=== PATIENT | female | born 1990 | race Caucasian/White ===

== ENCOUNTER 2018-03-12 18:12 | Emergency (ER) | payer BC, SELFPAY ==
[2018-03-12 18:22] VITALS: BP 121/68; PULSE 79; RESP 16; TEMP 37; O2SAT 100
--- NOTE | 2018-03-12 18:34 | W.ED.GENAD ---
Discharge Plan Disposition Patient Disposition: HOME Condition: Good Discharge Details Chief Complaint: Urinary Clinical Impression: Acute cystitis ED Provider: Lee Braxton Home Meds and New Rx's Prescriptions: New cephalexin 500 mg tablet 500 mg PO TID 7 Days Qty: 21 RF: 0 phenazopyridine [Pyridium] 100 mg tablet 100 mg PO TID PRN (Reason: UTI) 0 Days RF: 0 Discharge Instructions Instructions: Urinary Tract Infection in Women (ED) Additional Instructions: Please take Pyridium and antibiotic as prescribed. The small, frequent sips of fluids to maintain hydration. Return if you develop a fever, back pain, or any other acute concerns. Follow-up with regular doctor if not improved in 1 week's time Medical Decision Making MDM Narrative Medical decision making narrative: This is a pleasant 27-year-old female presents with 1 day of burning and urgency of urination, similar to previous urinary tract infections. She is afebrile with normal vital signs, mildly tender in the suprapubic region. Consistent with acute cystitis. Urinalysis obtained. Patient is not . we will treat with Pyridium and antibiotics. Lab Data Lab results reviewed: Yes I reviewed the patient's lab results. HPI - General Adult General Date/Time Provider Initiated Documentation: 03/12/18 18:29. Limitations to Documentation: no limitations. Information obtained by: patient. History of Present Illness 27 year old F presents to the emergency department with the chief complaint of UTI, described as mild, Quality is described as burning, and is localized to the pelvis. Patient reports no radiation. Patient started experiencing this hour(s) and it has been constant. No relieving factors improve symptom(s), No exacerbating factors reported . Patient notes no other symptoms.. Patient did receive the following treatments prior to arrival, none Related Data Previous Rx's Medication Instructions Recorded cephalexin 500 mg PO TID 7 Days #21 tab 03/12/18 phenazopyridine [Pyridium] 100 mg PO TID PRN 0 Days tab 03/12/18 Allergies Allergy/AdvReac Type Severity Reaction Status Date / Time No Known Allergies Allergy Unverified 03/12/18 18:27 General Stated Complaint: Urinary ELIF: 4 Review of Systems Review of Systems 8 systems reviewed and otherwise neg PFSH Social History Smoking/Tobacco Use Status: Never Exam Const General: cooperative, healthy appearing, comfortable and no acute distress HENMT Head: normal to inspection Eyes Pupils: PERRL EOM: EOM intact bilaterally Resp Effort & Inspection: normal respiratory effort and able to speak in complete sentences Auscultation: clear to auscultation bilaterally Cardio Rate: regular rate Rhythm: regular rhythm GI Inspection: normal to inspection Palpation: soft Other: Tender to palpation suprapubic area without rebound or guarding Extrem General: normal to inspection and full ROM Psych Appearance: grossly normal Mental Status: mental status grossly normal Speech and Movement: speech and movement normal Course Vital Signs Temperature 37.0 C 03/12/18 18:22 Pulse 79 03/12/18 18:22 Respiratory Rate 16 03/12/18 18:22 Blood Pressure 121/68 03/12/18 18:22 Pulse Oximetry 100 03/12/18 18:22 Temperature 37.0 C 03/12/18 18:22 Pulse 79 03/12/18 18:22 Respiratory Rate 16 03/12/18 18:22 Blood Pressure 121/68 03/12/18 18:22 Pulse Oximetry 100 03/12/18 18:22
--- NOTE | 2018-03-12 18:37 | ED.GENADUL_ITS ---
Discharge Plan Disposition Patient Disposition: HOME Condition: Good Discharge Details Chief Complaint: Urinary Clinical Impression: Acute cystitis ED Provider: Lee Braxton Home Meds and New Rx's Prescriptions: New cephalexin 500 mg tablet 500 mg PO TID 7 Days Qty: 21 RF: 0 phenazopyridine [Pyridium] 100 mg tablet 100 mg PO TID PRN (Reason: UTI) 0 Days RF: 0 Discharge Instructions Instructions: Urinary Tract Infection in Women (ED) Additional Instructions: Please take Pyridium and antibiotic as prescribed. The small, frequent sips of fluids to maintain hydration. Return if you develop a fever, back pain, or any other acute concerns. Follow- up with regular doctor if not improved in 1 week's time Medical Decision Making MDM Narrative Medical decision making narrative: This is a pleasant 27-year-old female presents with 1 day of burning and urgency of urination, similar to previous urinary tract infections. She is afebrile with normal vital signs, mildly tender in the suprapubic region. Consistent with acute cystitis. Urinalysis obtained. Patient is not . we will treat with Pyridium and antibiotics. Lab Data Lab results reviewed: Yes I reviewed the patient's lab results. HPI - General Adult General Date/Time Provider Initiated Documentation: 03/12/18 18:29 . Limitations to Documentation: no limitations . Information obtained by: patient . History of Present Illness 27 year old F presents to the emergency department with the chief complaint of UTI, described as mild, Quality is described as burning, and is localized to the pelvis. Patient reports no radiation. Patient started experiencing this hour(s) and it has been constant. No relieving factors improve symptom( s), No exacerbating factors reported . Patient notes no other symptoms.. Patient did receive the following treatments prior to arrival, none Related Data Previous Rx's Medication Instructions Recorded cephalexin 500 mg PO TID 7 Days #21 tab 03/12/18 phenazopyridine [Pyridium] 100 mg PO TID PRN 0 Days tab 03/12/18 Allergies Allergy/AdvReac Type Severity Reaction Status Date / Time No Known Allergies Allergy Unverified 03/12/18 18:27 General Stated Complaint: Urinary ELIF: 4 Review of Systems Review of Systems 8 systems reviewed and otherwise neg PFSH Social History Smoking/Tobacco Use Status: Never Exam Const General: cooperative, healthy appearing, comfortable and no acute distress HENMT Head: normal to inspection Eyes Pupils: PERRL EOM: EOM intact bilaterally Resp Effort & Inspection: normal respiratory effort and able to speak in complete sentences Auscultation: clear to auscultation bilaterally Cardio Rate: regular rate Rhythm: regular rhythm GI Inspection: normal to inspection Palpation: soft Other: Tender to palpation suprapubic area without rebound or guarding Extrem General: normal to inspection and full ROM Psych Appearance: grossly normal Mental Status: mental status grossly normal Speech and Movement: speech and movement normal Course Vital Signs Temperature 37.0 C 03/12/18 18:22 Pulse 79 03/12/18 18:22 Respiratory Rate 16 03/12/18 18:22 Blood Pressure 121/68 03/12/18 18:22 Pulse Oximetry 100 03/12/18 18:22 Temperature 37.0 C 03/12/18 18:22 Pulse 79 03/12/18 18:22 Respiratory Rate 16 03/12/18 18:22 Blood Pressure 121/68 03/12/18 18:22 Pulse Oximetry 100 03/12/18 18:22
[2018-03-12 18:46] LABS: Bilirubin Negative (Negative); Blood Large (Negative); Clarity Clear; Glucose Negative (Negative); Ketones Negative (Negative); Leukocyte Esterase Moderate (Negative); Nitrite Negative (Negative); Specific Gravity <= 1.005 (1.005-1.025); Urobilinogen 0.2 EU/dL (Up TO 0.2); pH 6.5 (5-8)
[2018-03-12] MEDS: Phenazopyridine 100 MG TAB (18:54)
[2018-03-12] MEDS: Ciprofloxacin 500 MG TAB (18:54)
[2018-03-12 19:11] LABS: Bacteria Negative HPF (Negative); C & S Indicated? Yes; Crystals Negative HPF (Negative); Epithelial Cells Negative HPF (Negative); Mucus Negative (Negative); RBC Negative (0-2); WBC 20-50 HPF (0-5)
== END 2018-03-12 18:58 | disposition home or self-care (01) ==
PROVIDERS: Emergency Provider Emergency Medicine
DX: N30.00 Acute cystitis without hematuria (principal); Z87.440 Personal history of urinary (tract) infections
CPT/HCPCS: 81025; 87077; 99283; 81003; 81015; 87086